=== PATIENT | male | born 1960 | race Caucasian/White ===

== ENCOUNTER 2020-02-27 22:09 | Day surgery (SDCO) | payer MEDICARE ==
[2020-02-27 23:08] LABS: BASOPHIL 0.4 % (0-2); EOSINOPHIL 0.6 % (0-5); HCT 45.7 % (42.0-52.0); HGB 15.9 g/dl (13.2-18.0); LYMPHOCYTE 69.8 % (15-48); MCH 36.1 pg (25.0-31.0); MCHC 34.8 g/dL (32.0-36.0); MCV 103.6 fL (78.0-100.0); MONOCYTE 10.5 % (0-12); NEUTROPHIL 18.5 % (41-80); NRBC 0; RBC 4.41 M/uL (4.70-6.00); WBC 4.8 K/uL (4.0-10.5)
[2020-02-27 23:25] LABS: ALBUMIN 3.2 g/dL (3.4-5.0); BILIRUBIN - TOTAL 0.5 mg/dL (0.2-1.0); BUN/CREAT RATIO (CALC) 4.2 RATIO; CREATININE 0.72 mg/dL (0.67-1.17); GLOBULIN (CALCULATION) 4.3 g/dL; POTASSIUM 3.6 mmol/L (3.5-5.1); TOTAL PROTEIN 7.5 g/dL (6.4-8.2)
[2020-02-27 23:30] LABS: LACTIC ACID 1.3 mmol/L (0.4-1.9)
[2020-02-27 23:48] LABS: PLT 74 K/uL (150-400)
[2020-02-28 02:49] LABS: BILIRUBIN NEGATIVE (NEGATIVE); BLOOD NEGATIVE Ery/uL (NEGATIVE); CLARITY CLEAR (CLEAR); COLOR YELLOW (YELLOW); GLUCOSE (U) NORMAL (NORMAL); LEUKOCYTES NEGATIVE Leu/uL (NEGATIVE); NITRITE NEGATIVE (NEGATIVE); PROTEIN NEGATIVE (NEGATIVE); SPECIFIC GRAVITY <=1.005 (1.001-1.030); UROBILINOGEN 0.2 mg/dL (0.2-1.0); pH 6.5 (5.0-9.0)
[2020-02-28] MEDS ORDERED: FLOMAX0.4 MG PO (10:09)
--- NOTE | 2020-02-28 10:27 | NUR ---
LIVES WITH SPOUSE; INDEPENDENT; PLEASE ADVISE WITH ANY D/C NEEDS
--- NOTE | 2020-02-28 10:46 | NUR ---
[facility] CONTACTED FOR MED LIST, ONLY ONE MEDICATION WAS CURRENT, PHARMICIST DID STATE THAT SEVERAL MEDS WERE PUT BACK THAT WERE NOT PICKED UP BY PATIENT, INCLUDING MANY BLOOD PRESSURE MEDICATIONS.
[2020-02-28] MEDS ORDERED: PROTONIX 40MG T40 MG PO (10:47)
== END 2020-02-28 12:30 | disposition home or self-care (01) ==
LOC: FER 22:09 → FMS 02-28 02:49
PROVIDERS: Emergency Medicine Emergency Medical Services; ADMIT Internal Medicine
DX: K40.90 Unilateral inguinal hernia, without obstruction or gangrene, not specified as recurrent (principal); R33.9 Retention of urine, unspecified; N32.89 Other specified disorders of bladder; I25.10 Atherosclerotic heart disease of native coronary artery without angina pectoris; J44.9 Chronic obstructive pulmonary disease, unspecified; K21.9 Gastro-esophageal reflux disease without esophagitis; G62.9 Polyneuropathy, unspecified; F32.9 Major depressive disorder, single episode, unspecified; F20.0 Paranoid schizophrenia; R41.3 Other amnesia; F17.210 Nicotine dependence, cigarettes, uncomplicated; I10 Essential (primary) hypertension; D69.6 Thrombocytopenia, unspecified; I25.2 Old myocardial infarction; N40.0 Benign prostatic hyperplasia without lower urinary tract symptoms; M51.17 Intervertebral disc disorders with radiculopathy, lumbosacral region; Z95.810 Presence of automatic (implantable) cardiac defibrillator; Z95.5 Presence of coronary angioplasty implant and graft; Z88.8 Allergy status to other drugs, medicaments and biological substances; Z87.11 Personal history of peptic ulcer disease; Z85.828 Personal history of other malignant neoplasm of skin; Z20.822 Contact with and (suspected) exposure to COVID-19; Z79.899 Other long term (current) drug therapy
CPT/HCPCS: 36415; 76870; 80053; 81003; 83605; 85025; G0378; J1170; J2405; Q9967; U0002